=== PATIENT | female | born 1985 | race Caucasian/White ===

== ENCOUNTER 2019-02-09 20:14 | Emergency (ER) | payer BC, OTHER ==
[2019-02-09 21:03] VITALS: BP 113/75; PULSE 108; TEMP 99.4; BMI 24.0
--- NOTE | 2019-02-09 21:40 | PDOC ---
Documentation entered by Ricarda Lucia SCRIBE, acting as scribe for Francine Fatima MD. Francine Fatima MD: This documentation has been prepared by the Khari yu Adrianna, SCRIBE, under my direction and personally reviewed by me in its entirety. I confirm that the documentation accurately reflects all work, treatment, procedures, and medical decision making performed by me. History of Present Illness - General Chief Complaint: Cold Symptoms Stated Complaint: FEVER - History of Present Illness Initial Comments: The patient is a 33 year old female, with no significant PMH, who presents to the ED for evaluation of fever since this morning. Patient notes that she did not feel well upon waking up this morning, so she measured her temperature and found it to be 103.6. She took 500mg of tylenol, stayed in bed, and fell back asleep. Upon waking up, she measured her temperature and note that it remained at 103.6. She reports feeling weak and dizzy, which is exacerbated with moving her head. Patient endorses associated headache, eye burning sensation, and low back soreness. She reports being bitten by mosquitos recently, but denies any unusual bug bites. Denies sore throat, runny nose, cough, rash, joint pain, chest pain, SOB, nausea , vomit, diarrhea, constipation, dysuria, hematuria, recent travel, sick contacts, abdominal pain. Allergies: Fruits, almonds Surgical History: None reported Social History: Denies EtOH, tobacco, or illicit drug use Past History - Past Medical History Allergies/Adverse Reactions: Allergies Allergy/AdvReac Type Severity Reaction Status Date / Time No Known Drug Allergies Allergy Verified 02/09/19 20:16 FRUITS AND ALMONDS Allergy Uncoded 02/09/19 20:16 Home Medications: Ambulatory Orders NK [No Known Home Medication] 02/09/19 Review of Systems - Review of Systems Comments:: General: +Fever of 103.6. +Weakness. No chills, no weight loss HEENT: +Eye-burning sensation. No change in vision. No sore throat. No ear pain CardioVascular: No chest pain or shortness of breath Respiratory: No cough, or wheezing. Gastrointestinal: no nausea, vomiting, diarrhea or constipation, No rectal bleeding Genitourinary: No dysuria, hematuria, or frequency Musculoskeletal: +Low back soreness. No joint or muscle swelling Neurologic: +Dizzy. +Headache. No vertigo, or loss of consciousness Psychiatric: no depression Skin: No rashes or easy bruising Endocrine: no increased thirst or abnormal weight change Allergic: no skin or latex allergy All other systems reviewed and normal *Physical Exam - Vital Signs Last Vital Signs Temp Pulse Resp BP Pulse Ox 99.4 F 108 H 16 113/75 99 02/09/19 20:17 02/09/19 20:17 02/09/19 20:17 02/09/19 20:17 02/09/19 20:17 - Physical Exam Comments: General: +Febrile. Well-nourished well-developed individual, no acute distress HEENT: Throat: Normal, tonsils normal, no erythema or exudate Neck: Supple, no meningeal signs, no lymphadenopathy Eyes::Pupils equal reactive and round, extraocular motion intact Chest: Nontender to palpation Cardiac: S1-S2 normal, regular rate and rhythm, no murmurs rubs or gallops Respiratory: Lungs clear to auscultation bilateral Abdomen: Soft, nondistended, normal bowel sounds, nontender to palpation diffusely Extremities: Warm, dry, no cyanosis, clubbing, or edema Skin: No rashes Neuro: Alert and oriented x3, nonfocal exam, grossly intact, normal gait Psych: Normal mood and affect Medical Decision Making - Medical Decision Making As noted above, this otherwise healthy 33-year-old woman, currently breast- feeding her 4-month-old presents with 1 day history of fever with malaise and myalgias. No other associated symptoms. She has been taking acetaminophen for fever. No one else sick at home (also has school-aged children) and no recent travel. Other than multiple mosquito bites over the last few weeks, she has had no open wounds and denies any embedded ticks noted. Exam, as noted is normalexcept for lowgrade fever Clinical presentation most consistent with viral syndrome; no evidence of acute bacterial source of her fever. No recent rash or tick bites. Although the patient has mosquito bites, she has no immunocompromise and any arbovirus infection should be self-limited. The patient should rest and drink plenty of fluids, using acetaminophen as needed for fever (patient wants to continue breast-feeding). She should return to the ER or see her doctor if she has persistent high fever, develops rash/stiff neck, cough or shortness of breath, vomiting or profuse diarrhea Discharge - Discharge Information Problems reviewed: Yes Clinical Impression/Diagnosis: Viral syndrome Condition: Stable Disposition: HOME - Follow up/Referral - Patient Discharge Instructions Patient Printed Discharge Instructions: DI for Viral Syndrome Additional Instructions: Rest; drink plenty of fluids Tylenol as needed for fever/headache Return to ER or see your doctor if you have persistent high fever as discussed or you develop lethargy/stiff neck/rash/vomiting in any case followup with your doctor within the next 2-3 days - Post Discharge Activity
== END 2019-02-09 21:03 | disposition home or self-care (01) ==
LOC: FER 20:14
DX: B34.9 Viral infection, unspecified (principal); Z91.018 Allergy to other foods
CPT/HCPCS: 99281-25